=== PATIENT | male | born 1955 | race Two or more races ===

== ENCOUNTER 2023-08-20 10:10 | Emergency (ER) | payer SELFPAY ==
[~2023-08-20] VITALS: Ht 175.3 cm; Wt 99.7 kg
[2023-08-20] MEDS ORDERED: SODIUM CHLORIDE 0.9% 1,000 ML IV ONE (11:15)
[2023-08-20 11:41] VITALS: BP 101/62; PULSE 101; RESP 18; TEMP 97.8; O2SAT 95
[2023-08-20 12:01] LABS: Alanine Aminotransferase 11 U/L (7-40); Albumin 4.2 g/dL (3.2-4.8); Alkaline Phosphatase 132 U/L (46-116); Anion Gap 10 (5-15); Aspartate Aminotransferase 14 U/L (13-40); BUN/Creatinine Ratio 9.3 (10.0-20.0); Bilirubin, Total 0.4 mg/dL (0.2-1.0); Blood Urea Nitrogen 10 mg/dL (9-23); Calcium 9.7 mg/dL (8.5-10.1); Carbon Dioxide 21 mmol/L (20-30); Chloride 98 mmol/L (98-107); Potassium 4.5 mmol/L (3.5-5.1); Sodium 129 mmol/L (136-145); Total Protein 7.8 g/dL (5.7-8.2)
[2023-08-20 12:13] LABS: Urine Bacteria FEW /hpf (None Seen); Urine Blood TRACE /uL (Negative); Urine Clarity HAZY (Clear); Urine Mucus FEW (None Seen); Urine Protein, UAD 1+ (Negative); Urine Specific Gravity 1.028 (1.001-1.035); Urine Urobilinogen Normal (Negative); Urine WBC 66 /hpf (0 - 3); Urine pH 5.5 (5.0-8.0)
[2023-08-20 12:14] LABS: Urine Color Straw (Yellow)
[2023-08-20 12:33] LABS: Glucose 424 mg/dL (74-106)
[2023-08-20] MEDS ORDERED: cefTRIAXone 1GM/50ML D5W 50 ML IV ONE (14:15)
[2023-08-20] MEDS ORDERED: CIPR-173 PO (14:39)
== END 2023-08-20 14:56 | disposition home or self-care (01) ==
LOC: ER 10:10
DX: E11.65 Type 2 diabetes mellitus with hyperglycemia (principal); N39.0 Urinary tract infection, site not specified; F17.210 Nicotine dependence, cigarettes, uncomplicated; Z79.899 Other long term (current) drug therapy
CPT/HCPCS: 36415; 80053; 81001; 82962; 96361; 96365; 99284; J0696; J7030